=== PATIENT | female | born 1950 | race Two or more races ===

== ENCOUNTER 2020-05-21 06:00 | Day surgery (SDC) | payer OTHER ==
[~2020-05-21 06:00] MED LIST: ACETAMINOPHEN325 M1 PO; ALLERGY EYE DRO10 M1 OP; ATORVASTATIN CA10 MG PO; COZAAR25 MG PO; FLONASE16 GM; GABAPENTIN100 M2 PO; ZANAFLEX2 M1 PO
== END 2020-05-21 16:05 | disposition home or self-care (01) ==
LOC: CIR.AMB 06:00
PROVIDERS: ATTEND Surgery
DX: L72.0 Epidermal cyst (principal)